=== PATIENT | female | born 1990 | race Two or more races ===

== ENCOUNTER 2017-12-30 19:43 | Emergency (ER) | payer MEDICAID ==
[~2017-12-30] VITALS: Ht 154.9 cm; Wt 90.7 kg
[2017-12-30 20:52] LABS: Basophils # (auto) 0.1 uL; Basophils % (auto) 0.3 % (0.0-2.0); Eosinophils # (auto) 0.6 uL; Eosinophils % (auto) 3.7 % (0.0-7.0); Hematocrit 38.8 % (36.0-46.0); Hemoglobin 13.3 g/dL (12.2-16.2); Lymphocytes # (auto) 2.2 uL; Lymphocytes % (auto) 13.2 % (10.0-50.0); Mean Corpuscular Hemoglobin 30.8 pg (28.0-32.0); Mean Corpuscular Hgb Conc. 34.3 g/dL (32.0-36.0); Mean Corpuscular Volume 89.9 fL (80.0-100.0); Monocytes # (auto) 0.9 uL; Monocytes % (auto) 5.2 % (0.0-12.0); Neutrophils # (auto) 12.8 uL; Neutrophils % (auto) 77.6 % (37.0-80.0); Nucleated Red Blood Cells % 0.1 %; Platelet Count (auto) 363 10^3/uL (140-450); Red Blood Cells 4.32 10^6/uL (4.0-5.20); Red Cell Distribution Width 12.7 % (11.8-14.3); White Blood Cell 16.5 10^3/uL (4.4-10.8)
[2017-12-30 20:55] LABS: Urine Bacteria NONE SEEN /hpf (None Seen); Urine Blood 2+ /uL (Negative); Urine Specific Gravity 1.008 (1.001-1.035); Urine WBC 157 /hpf (0 - 5)
[2017-12-30 21:04] LABS: Albumin 3.8 g/dL (3.4-5.0); BUN/Creatinine Ratio 22.7; Calcium 8.6 mg/dL (8.5-10.1); Partial Thromboplastin Time 28.2 sec (23.78-33.04); Potassium 4.1 mmol/L (3.5-5.1); Prothrombin Time 10.7 sec (9.27-12.13)
[2017-12-30 21:07] LABS: Bilirubin, Total 0.4 mg/dL (0.2-1.0); Total Protein 7.9 g/dL (6.4-8.2)
[2017-12-31] MEDS ORDERED: cefTRIAXone 1GM/10ml IVPUSH 10 ML IV ONE (01:15)
[2017-12-31] MEDS ORDERED: SODIUM CHLORIDE 0.9% 1,000 ML IV ONE (01:15)
[2017-12-31] MEDS ORDERED: NALBUPHINE HCL 10 MG/1ml INJECTION IV ONE (01:15)
[2017-12-31] MEDS ORDERED: ONDANSETRON HCL 4 MG/2 ML VIAL IV ONE (01:15)
[2017-12-31] MEDS ORDERED: cefTRIAXone SOD 1,000 MG VL ONE (01:27)
[2017-12-31 01:30] VITALS: BP 126/74
[2017-12-31] MEDS ORDERED: cefTRIAXone W LIDOCAINE 1 GM IM IM ONE (01:30)
[2017-12-31] MEDS ORDERED: LIDOCAINE 1% (LOCAL ANESTH.) PF 5ml SDV ONE (01:33)
== END 2017-12-31 02:20 | disposition home or self-care (01) ==
LOC: ER 19:43
DX: N39.0 Urinary tract infection, site not specified (principal)
CPT/HCPCS: 36415; 80053; 81001; 81025; 82150; 83690; 85025; 85610; 85730; 96372; 99284; J0696; J7030

== ENCOUNTER 2018-01-10 18:28 | Emergency (ER) | payer MEDICAID ==
[~2018-01-10] VITALS: Ht 147.3 cm; Wt 98.9 kg
[2018-01-10 19:41] LABS: Urine Bacteria FEW /hpf (None Seen); Urine Blood TRACE /uL (Negative); Urine Specific Gravity 1.004 (1.001-1.035); Urine WBC 32 /hpf (0 - 5)
[2018-01-10 19:55] LABS: Basophils # (auto) 0.1 uL; Basophils % (auto) 0.4 % (0.0-2.0); Eosinophils # (auto) 0.5 uL; Eosinophils % (auto) 3.5 % (0.0-7.0); Hematocrit 39.6 % (36.0-46.0); Hemoglobin 13.5 g/dL (12.2-16.2); Lymphocytes # (auto) 1.9 uL; Lymphocytes % (auto) 14.4 % (10.0-50.0); Mean Corpuscular Hemoglobin 30.8 pg (28.0-32.0); Mean Corpuscular Volume 90.6 fL (80.0-100.0); Monocytes # (auto) 0.8 uL; Monocytes % (auto) 5.9 % (0.0-12.0); Neutrophils % (auto) 75.8 % (37.0-80.0); Platelet Count (auto) 363 10^3/uL (140-450); Red Blood Cells 4.37 10^6/uL (4.0-5.20); Red Cell Distribution Width 13.1 % (11.8-14.3); White Blood Cell 13.2 10^3/uL (4.4-10.8)
[2018-01-10 20:14] LABS: Albumin 3.9 g/dL (3.4-5.0); BUN/Creatinine Ratio 16.4; Bilirubin, Total 0.2 mg/dL (0.2-1.0); Calcium 8.7 mg/dL (8.5-10.1); Total Protein 7.7 g/dL (6.4-8.2)
[2018-01-10] MEDS ORDERED: metroNIDAZOLE 500MG/100ML 100 ML IV ONE (23:45)
[2018-01-10] MEDS ORDERED: cefTRIAXone 1GM/10ml IVPUSH 10 ML IV ONE (23:45)
[2018-01-11 00:37] VITALS: BP 107/60
== END 2018-01-11 01:16 | disposition home or self-care (01) ==
LOC: ER 18:28
DX: N39.0 Urinary tract infection, site not specified (principal); K42.9 Umbilical hernia without obstruction or gangrene
CPT/HCPCS: 36415; 74176; 80053; 81001; 81025; 84702; 85025; 96365; 96375; 99285; J3490

== ENCOUNTER 2018-07-16 17:41 | Emergency (ER) | payer MEDICAID | END 2018-07-16 17:57 | disposition left against medical advice (07) | LOC: ER 17:41 | DX: R11.10 Vomiting, unspecified (principal); Z53.21 Procedure and treatment not carried out due to patient leaving prior to being seen by health care provider ==

== ENCOUNTER 2018-10-03 12:39 | Emergency (ER) | payer MEDICAID ==
[~2018-10-03] VITALS: Ht 152.4 cm; Wt 98.0 kg
[2018-10-03 13:24] VITALS: BP 116/78
== END 2018-10-03 15:06 | disposition home or self-care (01) ==
LOC: ER 12:53
DX: J03.90 Acute tonsillitis, unspecified (principal)

== ENCOUNTER 2019-05-27 08:33 | Emergency (ER) | payer MEDICAID ==
[~2019-05-27] VITALS: Ht 149.9 cm; Wt 113.4 kg
[2019-05-27 08:50] VITALS: BP 114/71
== END 2019-05-27 09:37 | disposition home or self-care (01) ==
LOC: ER 08:36
DX: J20.9 Acute bronchitis, unspecified (principal); H66.93 Otitis media, unspecified, bilateral; Z87.440 Personal history of urinary (tract) infections

== ENCOUNTER 2020-12-20 01:42 | Emergency (ER) | payer MEDICAID ==
[~2020-12-20] VITALS: Ht 147.3 cm; Wt 113.4 kg
[2020-12-20 02:37] LABS: Urine Bacteria FEW /hpf (None Seen); Urine Blood 3+ /uL (Negative); Urine Specific Gravity 1.016 (1.001-1.035); Urine WBC 183 /hpf (0 - 5); Urine WBC Clumps PRESENT /hpf (None Seen)
[2020-12-20 04:20] VITALS: BP 127/73
[2020-12-20] MEDS ORDERED: cefTRIAXone SOD 1,000 MG VL IM ONE (04:45)
== END 2020-12-20 04:46 | disposition home or self-care (01) ==
LOC: ER 01:42
DX: N39.0 Urinary tract infection, site not specified (principal)
CPT/HCPCS: 81001; 81025; 96372; 99283; J0696

== ENCOUNTER 2021-01-05 20:35 | Emergency (ER) | payer MEDICAID ==
[~2021-01-05] VITALS: Ht 154.9 cm; Wt 108.9 kg
[2021-01-05] MEDS ORDERED: ONDANSETRON ODT 4 MG TAB PO ONE ×2 (21:00→23:00)
[2021-01-05] MEDS ORDERED: HYDROmorphone HCL 2 MG/ML VL IM ONE (21:00)
[2021-01-05 22:19] LABS: Urine Bacteria FEW /hpf (None Seen); Urine Blood Negative /uL (Negative); Urine Hyaline Cast FEW /lpf (0 - 2); Urine Specific Gravity 1.033 (1.001-1.035); Urine WBC 8 /hpf (0 - 5)
[2021-01-06 05:57] VITALS: BP 121/78
== END 2021-01-06 00:23 | disposition home or self-care (01) ==
LOC: ER 20:35
DX: N39.0 Urinary tract infection, site not specified (principal); M79.10 Myalgia, unspecified site; R81 Glycosuria; E66.9 Obesity, unspecified; Z68.42 Body mass index [BMI] 45.0-49.9, adult
CPT/HCPCS: 72100; 81001; 81025; 96372; 99284; J1170; Q0162

== ENCOUNTER 2021-05-17 10:25 | Emergency (ER) | payer MEDICAID ==
[~2021-05-17] VITALS: Ht 154.9 cm; Wt 104.3 kg
[2021-05-17] MEDS ORDERED: ACETAMINOPHEN 325 MG TAB PO ONE (10:45)
[2021-05-17 11:29] LABS: Urine Bacteria NONE SEEN /hpf (None Seen); Urine Blood Negative /uL (Negative); Urine Hyaline Cast FEW /lpf (0 - 2); Urine Specific Gravity 1.011 (1.001-1.035); Urine WBC 1 /hpf (0 - 5)
[2021-05-17 16:10] VITALS: BP 142/65
== END 2021-05-17 16:22 | disposition home or self-care (01) ==
LOC: ER 10:25
DX: O20.0 Threatened abortion (principal); Z3A.01 Less than 8 weeks gestation of pregnancy
CPT/HCPCS: 36415; 76801; 76817; 81001; 84702

== ENCOUNTER 2021-11-06 13:00 | Observation (INO) | payer MEDICAID, OTHER | END 2021-11-06 15:51 | disposition home or self-care (01) | LOC: LDRP 13:00 | PROVIDERS: ADMIT Obstetrics & Gynecology; ATTEND Obstetrics & Gynecology | DX: O99.891 Other specified diseases and conditions complicating pregnancy (principal); M25.571 Pain in right ankle and joints of right foot; M54.50 Low back pain, unspecified; Z3A.30 30 weeks gestation of pregnancy; W19.XXXA Unspecified fall, initial encounter; Y93.89 Activity, other specified; Y92.89 Other specified places as the place of occurrence of the external cause | CPT/HCPCS: 59025; 76815; 81002; 94760; G0378 ==

== ENCOUNTER 2021-11-06 15:56 | Emergency (ER) | payer MEDICAID ==
[~2021-11-06] VITALS: Ht 154.9 cm; Wt 113.4 kg
[2021-11-06 15:57] VITALS: BP 134/65
== END 2021-11-06 19:55 | disposition left against medical advice (07) ==
LOC: ER 15:56
DX: O26.893 Other specified pregnancy related conditions, third trimester (principal); M79.671 Pain in right foot; Z53.21 Procedure and treatment not carried out due to patient leaving prior to being seen by health care provider; Z3A.30 30 weeks gestation of pregnancy

== ENCOUNTER 2021-12-05 08:26 | Observation (INO) | payer MEDICAID ==
[2021-12-05] MEDS ORDERED: PREN-96 PO (09:19)
[2021-12-05] MEDS ORDERED: ASPI1TAB20 PO (09:20)
== END 2021-12-05 09:30 | disposition home or self-care (01) ==
LOC: LDRP 08:26
PROVIDERS: ADMIT Obstetrics & Gynecology; ATTEND Obstetrics & Gynecology
DX: O36.8130 Decreased fetal movements, third trimester, not applicable or unspecified (principal); Z3A.34 34 weeks gestation of pregnancy
CPT/HCPCS: 59025; 81002; 94760; G0378

== ENCOUNTER 2023-06-11 19:59 | Emergency (ER) | payer MEDICAID ==
[~2023-06-11] VITALS: Ht 152.4 cm; Wt 102.2 kg
[~2023-06-11 19:59] MED LIST: ACET-1881 PO; ASPI1TAB20 PO; PREN-96 PO
[2023-06-11 20:20] VITALS: BP 128/73; PULSE 108; RESP 19; TEMP 97.5
[2023-06-11] MEDS ORDERED: LIDO2SOL18 MT (21:43)
[2023-06-11] MEDS ORDERED: CLIN150C18 PO (21:43)
[2023-06-11] MEDS ORDERED: OFL50TS OT (21:43)
[2023-06-11] MEDS ORDERED: PRED20TA2 PO (21:43)
[2023-06-11] MEDS ORDERED: GENT0.3S10 EACHEYE (21:43)
[2023-06-11] MEDS ORDERED: cefTRIAXone SOD 1,000 MG VL IM ONE (21:45)
[2023-06-11] MEDS ORDERED: LIDOCAINE VISCOUS 2% 15ML UD MT ONE (21:45)
[2023-06-11] MEDS ORDERED: DexAMETHasone SOD PHOS 10MG/1ML VIAL INJ IM ONE (21:45)
[2023-06-11 23:23] VITALS: O2SAT 98
== END 2023-06-12 00:08 | disposition home or self-care (01) ==
LOC: ER 19:59
DX: J03.90 Acute tonsillitis, unspecified (principal); H60.93 Unspecified otitis externa, bilateral; H10.9 Unspecified conjunctivitis; Z79.82 Long term (current) use of aspirin; Z79.899 Other long term (current) drug therapy
CPT/HCPCS: 96372; 99284; J0696; J1100

== ENCOUNTER 2023-07-31 07:35 | Emergency (ER) | payer MEDICAID ==
[~2023-07-31] VITALS: Ht 154.9 cm; Wt 99.7 kg
[~2023-07-31 07:35] MED LIST changes: +CLIN150C18 PO; +GENT0.3S10 EACHEYE; +LIDO2SOL18 MT; +OFL50TS OT; +PRED20TA2 PO
[2023-07-31] MEDS ORDERED: ACETAMINOPHEN 500 MG TAB PO ONE (07:45)
[2023-07-31 07:59] VITALS: BP 138/72; PULSE 125; RESP 18; TEMP 99.9; O2SAT 95
[2023-07-31] MEDS ORDERED: ONDANSETRON ODT 4 MG TAB PO ONE (08:15)
[2023-07-31] MEDS ORDERED: cefTRIAXone SOD 1,000 MG VL IM ONE (08:15)
[2023-07-31] MEDS ORDERED: AZIT500T66 PO (08:44)
[2023-07-31] MEDS ORDERED: IBUP-1456 PO (08:44)
== END 2023-07-31 08:56 | disposition home or self-care (01) ==
LOC: ER 07:35
DX: J03.90 Acute tonsillitis, unspecified (principal); R91.8 Other nonspecific abnormal finding of lung field
CPT/HCPCS: 71045; 81002; 96372; 99283; J0696; Q0162

== ENCOUNTER 2023-09-08 17:35 | Emergency (ER) | payer MEDICAID, OTHER ==
[~2023-09-08] VITALS: Ht 154.9 cm; Wt 99.0 kg
[~2023-09-08 17:35] MED LIST changes: +AZIT500T66 PO; +IBUP-1456 PO
[2023-09-08] MEDS: SODIUM CHLORIDE 0.9% 1,000 ML IV ONE (18:30)
[2023-09-08 18:58] LABS: Basophils # (auto) 0 10 ^3/uL (0-0.2); Basophils % (auto) 0.2 % (0.0-2.0); Eosinophils # (auto) 0.2 10 ^3/uL (0-0.8); Eosinophils % (auto) 4.3 % (0.0-7.0); Hematocrit 38.5 % (36.0-46.0); Hemoglobin 12.8 g/dL (12.2-16.2); Lymphocytes # (auto) 1.5 10 ^3/uL (0.4-5.4); Mean Corpuscular Hemoglobin 27.5 pg (28.0-32.0); Mean Corpuscular Hgb Conc. 33.3 g/dL (32.0-36.0); Mean Corpuscular Volume 82.4 fL (80.0-100.0); Monocytes # (auto) 0.5 10 ^3/uL (0-1.3); Monocytes % (auto) 11.1 % (0.0-12.0); Neutrophils # (auto) 2.1 10 ^3/uL (1.6-8.6); Neutrophils % (auto) 49.4 % (37.0-80.0); Nucleated Red Blood Cells % 0.2 %; Red Blood Cells 4.67 10^6/uL (4.0-5.20); Red Cell Distribution Width 12.8 % (11.8-14.3); White Blood Cell 4.2 10^3/uL (4.4-10.8)
[2023-09-08 19:17] LABS: INR 1.12 (0.9-1.15); Partial Thromboplastin Time 29.7 SEC (24.5-34.5); Prothrombin Time 11.7 sec (9.3-11.8)
[2023-09-08 19:19] LABS: Alanine Aminotransferase 37 U/L (7-40); Albumin 4.4 g/dL (3.2-4.8); Alkaline Phosphatase 187 U/L (46-116); Anion Gap 7 (5-15); Aspartate Aminotransferase 25 U/L (13-40); BUN/Creatinine Ratio 27.3 (10.0-20.0); Bilirubin, Total 0.7 mg/dL (0.2-1.0); Blood Urea Nitrogen 12 mg/dL (9-23); Calcium 9.4 mg/dL (8.7-10.4); Carbon Dioxide 22 mmol/L (20-30); Chloride 108 mmol/L (98-107); Glucose 91 mg/dL (74-106); Lipase 30 U/L (12-53); Potassium 3.8 mmol/L (3.5-5.1); Sodium 137 mmol/L (136-145); Total Protein 7.4 g/dL (5.7-8.2)
[2023-09-08 19:29] LABS: Urine Bacteria FEW /hpf (None Seen); Urine Blood Negative /uL (Negative); Urine Clarity HAZY (Clear); Urine Color Yellow (Yellow); Urine Mucus FEW (None Seen); Urine Protein, UAD Negative (Negative); Urine Specific Gravity 1.021 (1.001-1.035); Urine Urobilinogen Normal (Negative); Urine WBC 2 /hpf (0 - 5); Urine pH 5.5 (5.0-8.0)
[2023-09-08] MEDS ORDERED: PHEN95TA10 PO (20:57)
[2023-09-08] MEDS ORDERED: ACET-1304 PO (20:57)
[2023-09-08] MEDS ORDERED: CEPH500T PO (20:57)
[2023-09-08] MEDS: CEPHALEXIN 250 MG CAP PO ONE (22:55)
[2023-09-08] MEDS: ACETAMINOPHEN 500 MG TAB PO ONE (22:56)
[2023-09-08 23:00] VITALS: BP 130/69; PULSE 117; RESP 18; TEMP 98; O2SAT 97
== END 2023-09-08 23:00 | disposition home or self-care (01) ==
LOC: ER 17:35
DX: N39.0 Urinary tract infection, site not specified (principal); R10.2 Pelvic and perineal pain; R19.7 Diarrhea, unspecified; Z98.890 Other specified postprocedural states; Z79.899 Other long term (current) drug therapy
CPT/HCPCS: 36415; 74176; 80053; 81001; 83605; 83690; 84702; 85025; 85610; 85730; 87040

== ENCOUNTER 2023-10-14 15:00 | Emergency (ER) | payer MEDICAID ==
[~2023-10-14] VITALS: Ht 154.9 cm; Wt 98.1 kg
[~2023-10-14 15:00] MED LIST changes: +ACET-1304 PO; +BENZ100C97 PO; +CEPH500T PO; +PHEN95TA10 PO; +PROM1SOL4 PO
[2023-10-14 16:10] VITALS: BP 125/72; PULSE 100; RESP 18; TEMP 99.6; O2SAT 97
[2023-10-14] MEDS: PROMETHAZINE W/CODEINE 5 ML ORAL SYRUP PO ONE (16:32)
[2023-10-14] MEDS ORDERED: PRED20TA2 PO (17:09)
== END 2023-10-14 17:13 | disposition home or self-care (01) ==
LOC: ER 15:00
DX: J40 Bronchitis, not specified as acute or chronic (principal); Z98.51 Tubal ligation status
CPT/HCPCS: 71046

== ENCOUNTER 2023-12-24 13:24 | Emergency (ER) | payer MEDICAID ==
[~2023-12-24] VITALS: Ht 147.3 cm; Wt 93.9 kg
[2023-12-24 18:31] LABS: Urine Bacteria None Seen /hpf (None Seen)
[2023-12-24] MEDS ORDERED: AMOX875T4 PO (18:50)
[2023-12-24] MEDS ORDERED: ACET500T58 PO (18:50)
[2023-12-24 18:54] LABS: Urine Blood TRACE /uL (Negative); Urine Clarity Turbid (Clear); Urine Color Yellow (Yellow); Urine Mucus FEW (None Seen); Urine Protein, UAD TRACE (Negative); Urine Specific Gravity 1.022 (1.001-1.035); Urine Urobilinogen 2 mg/dL (Negative); Urine WBC 5 /hpf (0 - 5); Urine pH 5.5 (5.0-9.0)
[2023-12-24 19:18] LABS: Rapid Influenza A Negative (Negative); Rapid Influenza B Negative (Negative)
[2023-12-24 19:19] LABS: COVID19 ANTIGEN SOFIA FIA NEGATIVE (NEGATIVE)
[2023-12-24] MEDS: ACETAMINOPHEN 325 MG TAB PO ONE (19:38)
[2023-12-24] MEDS: SODIUM CHLORIDE 0.9% 1,000 ML IV ONE (19:55)
[2023-12-24 20:32] VITALS: BP 124/67; PULSE 111; RESP 20; TEMP 98.6; O2SAT 100
== END 2023-12-24 20:45 | disposition home or self-care (01) ==
LOC: ER 13:24
DX: J06.9 Acute upper respiratory infection, unspecified (principal); F41.9 Anxiety disorder, unspecified; E86.0 Dehydration; E66.01 Morbid (severe) obesity due to excess calories; Z68.41 Body mass index [BMI] 40.0-44.9, adult; Z20.822 Contact with and (suspected) exposure to COVID-19; Z98.51 Tubal ligation status
CPT/HCPCS: 36415; 81001; 87426; 87804; 96360; 99283; J7030

== ENCOUNTER 2024-01-25 19:54 | Inpatient (IN) | payer MEDICAID ==
[~2024-01-25] VITALS: Ht 154.9 cm; Wt 92.3 kg
[~2024-01-25 19:54] MED LIST changes: +ACET500T58 PO; +AMOX875T4 PO
[2024-01-25] MEDS: METOCLOPRAMIDE HCL 5MG/ml INJ 2ml VIAL IV ONE (20:38)
[2024-01-25] MEDS: SODIUM CHLORIDE 0.9% 1,000 ML IV ONE (20:39)
[2024-01-25] MEDS: ACETAMINOPHEN 325 MG TAB PO ONE (20:39)
[2024-01-25 20:51] LABS: Basophils # (auto) 0 10 ^3/uL (0-0.2); Basophils % (auto) 0.5 % (0.0-2.0); Eosinophils # (auto) 0.3 10 ^3/uL (0-0.8); Eosinophils % (auto) 4.4 % (0.0-7.0); Hematocrit 37.9 % (36.0-46.0); Lymphocytes % (auto) 28.6 % (10.0-50.0); Mean Corpuscular Hemoglobin 27.2 pg (28.0-32.0); Mean Corpuscular Hgb Conc. 34.2 g/dL (32.0-36.0); Mean Corpuscular Volume 79.6 fL (80.0-100.0); Monocytes # (auto) 0.5 10 ^3/uL (0-1.3); Monocytes % (auto) 6.6 % (0.0-12.0); Neutrophils # (auto) 4.2 10 ^3/uL (1.6-8.6); Neutrophils % (auto) 59.9 % (37.0-80.0); Nucleated Red Blood Cells % 0.1 %; Red Blood Cells 4.77 10^6/uL (4.0-5.20); Red Cell Distribution Width 14.1 % (11.8-14.3); White Blood Cell 7.1 10^3/uL (4.4-10.8)
[2024-01-25] MEDS: diphenhdrAMINE HCL 50 MG/1 ML VL IV ONE (20:57)
[2024-01-25] MEDS: diphenhdrAMINE HCL 50 MG/1 ML VL ONE (20:57)
[2024-01-25 20:59] LABS: Chloride 108 mmol/L (98-107); Potassium 3.5 mmol/L (3.5-5.1); Sodium 138 mmol/L (136-145)
[2024-01-25 21:00] LABS: Anion Gap 10 (5-15); Calcium 9.9 mg/dL (8.7-10.4); Carbon Dioxide 20 mmol/L (20-30)
[2024-01-25 21:05] LABS: BUN/Creatinine Ratio 13.5 (10.0-20.0); Blood Urea Nitrogen 7 mg/dL (9-23); Glucose 94 mg/dL (74-106)
[2024-01-26] MEDS ORDERED: ONDANSETRON HCL 4 MG/2 ML VIAL IV PRN (00:30)
[2024-01-26] MEDS ORDERED: LORazepam 0.5 MG TAB PO PRN (00:30)
[2024-01-26] MEDS ORDERED: ACETAMINOPHEN 325 MG TAB PO PRN (00:30)
[2024-01-26] MEDS ORDERED: TEMAZEPAM 15 MG CAP PO PRN (00:30)
[2024-01-26 01:38] LABS: Urine Bacteria FEW /hpf (None Seen); Urine Blood 3+ /uL (Negative); Urine Clarity Turbid (Clear); Urine Color Yellow (Yellow); Urine Mucus FEW (None Seen); Urine Protein, UAD TRACE (Negative); Urine Specific Gravity 1.024 (1.001-1.035); Urine Urobilinogen Normal (Negative); Urine WBC 21 /hpf (0 - 5); Urine pH 5.5 (5.0-9.0)
[2024-01-26 03:15] VITALS: PULSE 77; RESP 24; O2SAT 99
[2024-01-26 08:37] VITALS: PULSE 109; RESP 16; O2SAT 99
[2024-01-26 09:21] LABS: Free T4 (Free Thyroxine) 1.64 ng/dL (0.89-1.76)
[2024-01-26 09:24] LABS: T3 Total 2.27 ng/mL (0.60-1.81)
[2024-01-26] MEDS: methIMAzole 5 MG TAB PO SCH (10:28)
[2024-01-26 13:02] VITALS: TEMP 98.8
[2024-01-26] MEDS ORDERED: METH5TAB98 PO (17:34)
[2024-01-26 17:59] VITALS: BP 109/56; PULSE 87; RESP 19; O2SAT 98
[2024-01-26] MEDS ORDERED: methIMAzole 5 MG TAB PO SCH (22:00)
== END 2024-01-26 18:27 | disposition home or self-care (01) | DRG 427 ==
LOC: EDBD 19:54 → ER 19:54 → OVERFLOW 01-26 00:36
PROVIDERS: ADMIT Internal Medicine Geriatric Medicine; ATTEND Internal Medicine Geriatric Medicine
DX: E05.90 Thyrotoxicosis, unspecified without thyrotoxic crisis or storm (principal); E03.9 Hypothyroidism, unspecified; E66.01 Morbid (severe) obesity due to excess calories; F41.0 Panic disorder [episodic paroxysmal anxiety]; I10 Essential (primary) hypertension; Z98.51 Tubal ligation status; Z83.42 Family history of familial hypercholesterolemia; Z68.38 Body mass index [BMI] 38.0-38.9, adult
CPT/HCPCS: 36415; 70450; 70486; 80048; 81001; 81025; 83036; 84439; 84443; 84480; 84484; 85025; 93005; 96361; 96374; 96375; G0378